=== PATIENT | male | born 1975 | race Caucasian/White ===

== ENCOUNTER 2019-04-05 06:50 | Emergency (ER) | payer SELFPAY ==
[~2019-04-05] VITALS: Ht 172.7 cm; Wt 66.7 kg
[2019-04-05 07:00] VITALS: Ht 172.7 cm; Wt 66.7 kg
[2019-04-05 07:42] LABS: BASOPHIL % 0.3 % (0-2); PLATELET COUNT 320 x10^3mcL (130-400); RED CELL DISTRIBUTION WIDTH 14.1 % (11.5-14.5)
[2019-04-05 08:29] LABS: ALBUMIN 4.4 g/dL (3.4-5.0); ALKALINE PHOSPHATASE 124 U/L (46-116); ALT/SGPT 23 U/L (16-63); AST/SGOT 26 U/L (15-37); BILIRUBIN TOTAL 0.23 mg/dL (0.20-1.00); CARBON DIOXIDE 30.7 mmol/L (21-32); CHLORIDE SERUM 103 mmol/L (98-107); CREATININE SERUM 0.8 mg/dL (0.7-1.3); GFR1 > 60 mL/min; GLUCOSE SERUM 102 mg/dL (74-106); LIPASE 112 IU/L (73-393); POTASSIUM SERUM 4.5 mmol/L (3.5-5.1); SODIUM SERUM 142 mmol/L (136-145); TOTAL PROTEIN, SERUM 8.1 g/dL (6.4-8.2)
[2019-04-05 08:38] LABS: CALCIUM 8.6 mg/dL (8.5-10.1)
[2019-04-05 11:10] VITALS: BP 116/70
== END 2019-04-05 11:10 | disposition home or self-care (01) ==
LOC: ED 06:50
PROVIDERS: Emergency Medicine
DX: K29.20 Alcoholic gastritis without bleeding (principal)
CPT/HCPCS: C9113; G0480; J2270; J2405; Q0092